=== PATIENT | female | born 1970 | race Caucasian/White ===

== ENCOUNTER 2018-05-05 13:36 | Inpatient (IN) | payer BC ==
[~2018-05-05] VITALS: Ht 160 cm; Wt 59.4 kg
[2018-05-05 13:53] VITALS: BP 103/67
--- NOTE | 2018-05-05 14:00 | NUR ---
PT AMBULATES TO THE [facility] W/ STEADY GAIT AND VSS TO WAIT FOR AN AVAILABLE BED
--- NOTE | 2018-05-05 14:10 | NUR ---
Patient being evaluated by physician at bedside.
--- NOTE | 2018-05-05 14:11 | NUR ---
PATIENT PRESENTS TO ED WITH C/O GENERALIZED ABD PAIN AND N/V/D X 1 WEEK. PT STATES PAIN 8/10. DENEIS FEVERS. ABD SOFT, NON-TENDER. REPORTS RIGHT FLANK PAIN. DENIES DYSURIA. HX GALLSTONES. VSS; PATIENT POSITIONED FOR COMFORT; HOB ELEVATED; BEDRAILS UP X2; BED DOWN. ER MD MADE AWARE OF PT STATUS.
[2018-05-05] MEDS ORDERED: NACL 0.9% 1,000 ML IV SCH ×2 (14:24→22:00)
[2018-05-05] MEDS ORDERED: NACL 0.9% 1,000 ML IV ONE (14:24)
[2018-05-05] MEDS ORDERED: PROMETHAZINE 25 MG/ML VIAL IM ONE (14:25)
[2018-05-05] MEDS ORDERED: MORPHINE SULFATE 2 MG/ML SYR IVP ONE (14:25)
[2018-05-05] MEDS ORDERED: KETOROLAC 30 MG/ML VIAL IVP ONE (14:25)
[2018-05-05 14:50] LABS: BASOPHILS % (AUTO) 0.1 % (0.0-2.0); EOSINOPHILS # (AUTO) 0.1 K/uL (0-0.4); EOSINOPHILS % (AUTO) 0.6 % (0.0-4.0); HEMATOCRIT 44.2 % (36-48); HEMOGLOBIN 14.2 g/dL (12.0-16.0); LYMPHOCYTES # (AUTO) 0.5 K/uL (2.5-16.5); LYMPHOCYTES % (AUTO) 2.8 % (20.5-51.1); MEAN CORPUSCULAR HEMOGLOBIN 28 pg (27-31); MEAN CORPUSCULAR HGB CONC 32 g/dL (33-37); MEAN CORPUSCULAR VOLUME 88.2 fL (80-94); MONOCYTES # (AUTO) 0.9 K/uL (0.8-1.0); NEUTROPHILS # (AUTO) 15.5 K/uL (1.8-7.7); NEUTROPHILS % (AUTO) 91.5 % (42.2-75.2); PLATELET COUNT (AUTO) 233 K/uL (140-450); RED BLOOD CELL COUNT(AUTO) 5.01 MIL/uL (4.20-5.40); RED CELL DISTRIBUTION WIDTH 14.5 % (11.6-13.7)
[2018-05-05 14:58] LABS: APPEARANCE,URINE CLEAR (CLEAR); BILIRUBIN,URINE NEGATIVE (NEGATIVE); BLOOD, URINE TRACE-I (NEGATIVE); COLOR,URINE YELLOW (YELLOW); LEUKOCYTE ESTERASE ,URINE NEGATIVE (NEGATIVE); NITRITE, URINE NEGATIVE (NEGATIVE); UGLUCOSE NEGATIVE (NEGATIVE)
[2018-05-05 15:07] LABS: ANION GAP 11.4 (8-16); CARBON DIOXIDE 30.1 mmol/L (21-32); CREATININE 0.8 mg/dL (0.6-1.3); POTASSIUM 3.5 mmol/L (3.5-5.1)
[2018-05-05 15:11] LABS: RBC,URINE 3-10 (FEW) /HPF (0-5); WBC,URINE 0-5 (RARE) /HPF (0-5)
[2018-05-05 15:13] LABS: ALBUMIN 4.1 g/dL (3.4-5.0); TOTAL BILIRUBIN 0.4 mg/dL (0.0-1.0)
[2018-05-05] MEDS ORDERED: metroNIDAZOLE 500 MG/NS PREMIX 100 ML IV ONE (16:00)
[2018-05-05] MEDS ORDERED: cefTRIAXone 1,000 MG VIAL ONE (16:26)
[2018-05-05] MEDS ORDERED: KETOROLAC 30 MG/ML VIAL IVP PRN (18:45)
[2018-05-05] MEDS ORDERED: ONDANSETRON 4 MG/2 ML VIAL IM/IVP PRN (18:45)
[2018-05-05] MEDS ORDERED: LORazepam 2 MG/ML VIAL IM/IVP PRN (18:45)
[2018-05-05] MEDS ORDERED: ZOLPIDEM 5 MG TAB PO PRN (18:45)
[2018-05-05] MEDS ORDERED: ACETAMINOPHEN 325 MG TAB PO PRN (18:45)
[2018-05-05] MEDS ORDERED: DOCUSATE SODIUM 100 MG GELCAP PO PRN (18:45)
[2018-05-05] MEDS ORDERED: DEXT 5% / NACL 0.45% 1,000 ML IV SCH (18:45)
--- NOTE | 2018-05-05 19:16 | NUR ---
Recieved report from Baron MILIAN.
[2018-05-05 19:19] LABS: MAGNESIUM 1.9 mg/dL (1.8-2.4); THYROID STIMULATING HORMONE 1.39 uIU/mL (0.34-3.74)
[2018-05-05 19:26] LABS: BARBITURATE, URINE NEG. ng/ml (NEG <=200); BENZODIAZEPINE, URINE NEG. ng/mL (NEG <=200); CANNABINOID, URINE NEG. ng/mL (NEG <=50); COCAINE, URINE NEG. ng/mL (NEG <=300); OPIATE, URINE NEG. ng/mL (NEG <=2000); PHENCYCLIDINE SCREEN,URINE NEG. ng/mL (NEG <=25)
[2018-05-05 19:42] LABS: PROTHROMBIN TIME 10.3 secs (10.8-13.4)
--- NOTE | 2018-05-05 19:47 | NUR ---
ADMITTED PT FROM ER VIA WHEELCHAIR. AAOX4. PT IS AMBULATORY. NO C/O PAIN, NAUSEA OR VOMITING AT THIS TIME. NO C/O SOB. IV TO LEFT AC #22G, PATENT AND INTACT. SKIN INTACT. ORIENTED PT TO ROOM. DISCUSSED PLAN OF CARE, PT VERBALIZED UNDERSTANDING. SAFETY PRECAUTION IN PLACE. CALL LIGHT WITHIN REACH.
--- NOTE | 2018-05-05 19:48 | NUR ---
Patient will be admitted to care of DR MAY. Admited to MED/SURG VIA WHEELCHAIR WITH VSS. Will go to room 112A. Belongings list completed. Report to RAYMOND MILIAN.
[2018-05-05 20:00] VITALS: BP 95/62
[2018-05-05 22:21] LABS: CHOL/HDL RATIO 4.4 (1-4.5)
--- NOTE | 2018-05-05 22:30 | NUR ---
PT ASKED FOR SNACK. SNACK PROVIDED. PT TOLERATED FOOD WELL. NO C/O PAIN, NAUSEA OR VOMITING.
[2018-05-06] VITALS: BP 96/56
--- NOTE | 2018-05-06 01:00 | NUR ---
PT SLEEPING BUT EASILY AROUSABLE. RESP EVEN AND UNLABORED. NO S/S OF PAIN OR DISCOMFORT.
--- NOTE | 2018-05-06 02:30 | NUR ---
PT SLEEPING. NO S/S OF PAIN OR SOB. IVF INFUSING WELL.
[2018-05-06] MEDS ORDERED: metroNIDAZOLE 500 MG/NS PREMIX 100 ML IV SCH (05:00)
--- NOTE | 2018-05-06 05:00 | NUR ---
PT LYING IN BED, AWAKE. DENIES PAIN, NAUSEA OR VOMITING. ALL NEEDS MET AT THIS TIME. CALL LIGHT WITHIN REACH.
--- NOTE | 2018-05-06 06:00 | NUR ---
PT SLEEPING BUT WAKES EASILY. NO S/S OF PAIN OR DISCOMFORT. NO S/S OF RESP DISTRESS NOTED.
--- NOTE | 2018-05-06 07:28 | NUR ---
ENDORSED PT TO DAY SHIFT NURSE. PT IN STABLE CONDITION.
--- NOTE | 2018-05-06 07:29 | NUR ---
RECEIVED REPORT FROM HANDBAG FRAMES INSPECTOR NURSE. PATIENT LYING DOWN IN BED SLEEPING, AROUSABLE BY VOICE. NO DISTRESS NOTED. DENIES ANY PAIN AT THIS TIME. DENIES ANY NAUSEA/VOMITING THROUGHOUT HANDBAG FRAMES INSPECTOR. RESPIRATIONS EVEN, UNLABORED, ON ROOM AIR. AAOX4, CALM, COOPERATIVE, SKIN COLOR APPROPRIATE TO ETHNICITY, WARM TO TOUCH. SKIN IS INTACT. IV SITE INTACT, PATENT, AND INFUSING IVF PER MD ORDERS. ABDOMEN SOFT. SAFETY MEASURES IN PLACE, CALL LIGHT WITHIN REACH. WILL CONTINUE TO MONITOR.
[2018-05-06 08:00] VITALS: BP 92/51
[2018-05-06] MEDS ORDERED: FAMOTIDINE 20 MG TAB PO SCH (09:00)
[2018-05-06] MEDS ORDERED: AMOX1TAB8 PO (09:24)
[2018-05-06] MEDS ORDERED: LACT10CA1 PO (09:24)
--- NOTE | 2018-05-06 09:48 | NUR ---
PATIENT SITTING DOWN IN BED TALKING WITH SON AT BEDSIDE. NO DISTRESS NOTED. DENIES ANY PAIN. DENIES ANY NAUSEA/VOMITING AFTER EATING BREAKFAST. SCHEDULED MEDICATIONS DUE GIVEN. WILL CONTINUE TO MONITOR.
[2018-05-06] MEDS ORDERED: ONDA-25 PO (10:17)
--- NOTE | 2018-05-06 10:43 | NUR ---
DISCHARGE INSTRUCTIONS GIVEN TO PATIENT/FAMILY MEMBERS AT BEDSIDE IN PREFERRED LANGUAGE OF KINYARWANDA, FOLLOW-UP VISIT WITH PCP, NEW MEDICATION REGIMEN, DIET REGIMEN, AND DISEASE PROCESS/MANAGEMENT OF CHOLELITHIASIS. ANSWERED ALL OF PATIENT'S/FAMILY QUESTIONS REGARDING DISCHARGE. PATIENT/FAMILY VERBALIZED COMPLETE UNDERSTANDING. IV SITE REMOVED WITH MINIMAL BLOOD AND LUMEN COMPLETELY INTACT. ID BANDS REMOVED. ESCORTED PATIENT DOWN TO LOBBY VIA STEADY AMBULATION. PATIENT DISCHARGED AT THIS TIME IN STABLE CONDITION IN PRIVATE VEHICLE.
== END 2018-05-06 10:43 | disposition home or self-care (01) | DRG 872 ==
LOC: MED 13:36 → MTU 18:50 → MED 19:45
PROVIDERS: ADMIT General Practice; ATTEND General Practice
DX: A41.9 Sepsis, unspecified organism (principal); K80.00 Calculus of gallbladder with acute cholecystitis without obstruction; N20.0 Calculus of kidney; K21.9 Gastro-esophageal reflux disease without esophagitis; K76.0 Fatty (change of) liver, not elsewhere classified; K76.89 Other specified diseases of liver; M47.817 Spondylosis without myelopathy or radiculopathy, lumbosacral region; K52.9 Noninfective gastroenteritis and colitis, unspecified; Z82.61 Family history of arthritis; Z83.3 Family history of diabetes mellitus
CPT/HCPCS: 36415; 71045; 76705; 80053; 80305; 81001; 82150; 82977; 83036; 83605; 83690; 83735; 83880; 84100; 84443; 84703; 85025; 85610; 85730; 87081; 93005; 96361; 96365; 96368; 96375; 99285; J0696; J1885; J2270; J2550; J3490; J7030; Q0092

== ENCOUNTER 2019-03-31 20:52 | Emergency (ER) | payer BC ==
[~2019-03-31] VITALS: Ht 157.5 cm; Wt 63.5 kg
[~2019-03-31 20:52] MED LIST: AMOX1TAB8 PO; LACT10CA1 PO; ONDA-25 PO
[2019-03-31 20:55] VITALS: BP 129/75
--- NOTE | 2019-03-31 21:00 | NUR ---
PT AMBULATED TO LOBBY. URINE SPECIMEN PROVIDED.
--- NOTE | 2019-03-31 22:08 | NUR ---
PT BROUGHT TO BED 10 VIA WHEELCHAIR
--- NOTE | 2019-03-31 22:15 | NUR ---
49 Y/O FEMALE C/O PAIN X4 HOURS, RADIATES TO BACK. +N/V, VOMITTED BEFORE COMING TO THE HOSPITAL. SELF MEDICATED WITH TUMS, NO RELIEF. BOWEL SOUNDS HEARD ON ALL FOUR QUADRANTS. ABDOMEN IS TENDER TO TOUCH UPON PALPATION. PAIN IS 10/10 STARTING FROM THE RIGHT SIDE OF BACK RADIATING TO THE ABDOMEN. LAST BOWEL MOVMEMENT WAS TODAY; NORMAL. ERMD MADE AWARE OF STATUS; SIDE RAILS X2; PLACED ON MONITOR. WILL CONTINUE TO MONITOR. PMH: DENIES RX:DENIES NKDA SURGICAL HX: GALLBLADDER REMOVAL ( AUG, 2018).
[2019-04-01] MEDS ORDERED: NACL 0.9% 1,000 ML IV ONE ×2 (00:35→03:35)
[2019-04-01 01:03] LABS: APPEARANCE,URINE HAZY (CLEAR); BILIRUBIN,URINE NEGATIVE (NEGATIVE); BLOOD, URINE 3+ (NEGATIVE); COLOR,URINE YELLOW (YELLOW); LEUKOCYTE ESTERASE ,URINE NEGATIVE (NEGATIVE); NITRITE, URINE NEGATIVE (NEGATIVE); UGLUCOSE NEGATIVE (NEGATIVE)
[2019-04-01 01:10] LABS: HEMATOCRIT 40.2 % (36-48); HEMOGLOBIN 13.2 g/dL (12.0-16.0); MEAN CORPUSCULAR HEMOGLOBIN 29 pg (27-31); MEAN CORPUSCULAR HGB CONC 33 g/dL (33-37); MEAN CORPUSCULAR VOLUME 88.7 fL (80-94); PLATELET COUNT (AUTO) 245 K/uL (140-450); RED BLOOD CELL COUNT(AUTO) 4.53 MIL/uL (4.20-5.40); WHITE BLOOD COUNT (AUTO) 11.7 K/uL (4.8-10.8)
[2019-04-01 01:12] LABS: CALCIUM OXALATE CRYSTALS,UR 0-10 /HPF (None Seen); RBC,URINE >100 /HPF (0-5); WBC,URINE 0-5 /HPF (0-5)
--- NOTE | 2019-04-01 01:13 | NUR ---
PATIENT TAKEN TO CT.
[2019-04-01 01:19] LABS: ANION GAP 14.2 (8-16); CARBON DIOXIDE 28.5 mmol/L (21-32); CREATININE 0.9 mg/dL (0.6-1.3); POTASSIUM 3.7 mmol/L (3.5-5.1)
--- NOTE | 2019-04-01 01:21 | NUR ---
PATIENT BACK FROM CT.
[2019-04-01 01:24] LABS: LYMPHOCYTES % (MANUAL) 3 % (20-46); MONOCYTES % (MANUAL) 1 % (5-12)
[2019-04-01 01:25] LABS: ALBUMIN 3.9 g/dL (3.4-5.0); TOTAL BILIRUBIN 0.4 mg/dL (0.0-1.0)
--- NOTE | 2019-04-01 01:32 | NUR ---
PATIENT IS SITTING QUIETLY IN BED. WILL CONTINUE TO MONITOR.
[2019-04-01] MEDS ORDERED: MORPHINE SULFATE 4 MG/ML SYR IVP ONE (02:40)
--- NOTE | 2019-04-01 02:44 | NUR ---
PATIENT RATES PAIN OF 10/10. ERMD MADE AWARE.
--- NOTE | 2019-04-01 02:51 | NUR ---
PATIENT IS RESTING WITH EYES CLOSED. WILL CONTINUE TO MONITOR.
--- NOTE | 2019-04-01 03:26 | NUR ---
ERMD AT BEDSIDE.
[2019-04-01] MEDS ORDERED: KETOROLAC 30 MG/ML VIAL IVP ONE (03:35)
[2019-04-01 05:14] VITALS: BP 123/66
--- NOTE | 2019-04-01 05:14 | NUR ---
Patient discharged with v/s stable. Written and verbal after care instructions given and explained. Patient alert, oriented and verbalized understanding of instructions. Ambulatory with steady gait. All questions addressed prior to discharge. ID band removed. Patient advised to follow up with PMD. Rx of NAPROSYN given. Patient educated on indication of medication including possible reaction and side effects. Opportunity to ask questions provided and answered. DISCHARGED BY DR. LOCK.
== END 2019-04-01 05:14 | disposition home or self-care (01) ==
LOC: MED 20:52
DX: N13.8 Other obstructive and reflux uropathy (principal); K76.89 Other specified diseases of liver; Z90.49 Acquired absence of other specified parts of digestive tract
CPT/HCPCS: 36415; 74176; 80053; 81001; 81025; 85025; 96361; 96374; 96375; 99284; J1885; J2270; J7030